=== PATIENT | male | born 1985 ===

== ENCOUNTER → 2020-09-01 | Outpatient (REF) | payer OTHER ==
[2020-09-01 13:41] LABS: SEMEN APPEARANCE OPAQUE (OPAQUE); SEMEN VISCOSITY LIQUID (LIQUID); SEMEN VOLUME 1.5 ml (2.0-5.0); WBC CONCENTRATION <=1 M/ml (<=1 M/ml)
[2020-09-01 13:42] LABS: SPERM CONCENTRATION 150.5 M/ml (>=15.0)
== END ==
LOC: M LAB REF 13:38
DX: Z31.49 Encounter for other procreative investigation and testing (principal)